=== PATIENT | male | born 1960 | race Caucasian/White ===

== ENCOUNTER 2022-05-13 09:48 | Emergency (ER) | payer BC ==
[2022-05-13] MEDS: Sodium Chloride 0.9% 2.5 ML Syringe FLUSH PRN ×2 (10:19→10:24)
[2022-05-13] MEDS: Sodium Chloride 0.9% 10 ML Syringe FLUSH PRN ×2 (10:20→10:23)
[2022-05-13 11:08] LABS: CARBON DIOXIDE,CO2 24.6 mmol/L (21.0-32.0); POTASSIUM,K 3.9 mmol/L (3.5-5.1)
[2022-05-13] MEDS ORDERED: Magnesium Sulfate/Water 2 GM in Premix Bag 1 BAG IV ONE (11:13)
[2022-05-13 11:22] LABS: CORONAVIRUS COVID-19 NAA NEGATIVE (NEGATIVE); INFLUENZA A NAA NEGATIVE (NEGATIVE); INFLUENZA B NAA NEGATIVE (NEGATIVE); RESPIRATORY SYNCYTIAL VIR NAA NEGATIVE (NEGATIVE)
[2022-05-13] MEDS ORDERED: Morphine 2 MG/ML SYRINGE IVPUSH ONE (12:19)
[2022-05-13] MEDS ORDERED: Ondansetron 4 MG/2 ML SDV IVPUSH ONE (12:19)
== END 2022-05-13 14:36 | disposition home or self-care (01) ==
LOC: MW.ED 09:48
DX: K70.9 Alcoholic liver disease, unspecified (principal); E83.42 Hypomagnesemia; Z79.899 Other long term (current) drug therapy; Z20.822 Contact with and (suspected) exposure to COVID-19
CPT/HCPCS: 0241U; 36415; 71045; 80053; 82140; 83735; 84484; 85025; 93005; 96365; 96366; 96375; 99285; J2270; J2405; J3475; J3490; 93010; 99284

== ENCOUNTER 2022-05-25 10:23 | Emergency (ER) | payer BC | END 2022-05-25 11:56 | disposition home or self-care (01) | LOC: MW.ED 10:23 | DX: R42 Dizziness and giddiness (principal); Z76.0 Encounter for issue of repeat prescription; Z86.73 Personal history of transient ischemic attack (TIA), and cerebral infarction without residual deficits | CPT/HCPCS: 99283 ==